=== PATIENT | female | born 1945 | race Caucasian/White ===

== ENCOUNTER 2018-06-13 08:05 | Day surgery (SDC) ==
[2018-06-13] MEDS: TETRACAINE 0.5% UNIT-DOSE OP PRN ×3 (09:15→10:12)
[2018-06-13] MEDS: BETADINE OPTH PREP OP PRN ×2 (09:15→09:57)
[2018-06-13] MEDS: CYCLOGYL 2% OPTH OP PRN ×3 (09:16→09:26)
[2018-06-13] MEDS ORDERED: ZOFRAN 4 MG/2 ML IVP ONE (09:24)
[2018-06-13] MEDS ORDERED: LIDOCAINE 1% 20 ML MDV ID STA (09:24)
[2018-06-13] MEDS ORDERED: BRIMONIDINE TARTRATE 0.2% OPTH SOL OP PRN (09:24)
[2018-06-13 09:27] VITALS: TEMP 98
[2018-06-13] MEDS: LIDOCAINE 1%/PHENYLEPHRINE 1.5% BSS (SURGERY) INTRAOCULA ONE ×2 (09:57→10:12)
[2018-06-13] MEDS: DEX-MOXI-KETOR OPTH INJ 1/0.5/0.4 MG/ML IO ONE ×2 (09:57→10:12)
[2018-06-13] MEDS: BSS WITH EPINEPHRINE OP ONE ×2 (09:57→10:12)
[2018-06-13] MEDS ORDERED: SUBLIMAZE ONE (10:03)
[2018-06-13] MEDS ORDERED: VERSED ONE (10:03)
[2018-06-14 11:40] VITALS: BP 132/73
== END 2018-06-13 11:00 | disposition home or self-care (01) ==
LOC: SURG 08:05
PROVIDERS: ATTEND Ophthalmology
DX: H25.12 Age-related nuclear cataract, left eye (principal)

== ENCOUNTER 2018-06-27 07:33 | Day surgery (SDC) ==
[2018-06-27] MEDS: BETADINE OPTH PREP OP PRN ×2 (08:00→08:48)
[2018-06-27] MEDS: TETRACAINE 0.5% UNIT-DOSE OP PRN ×2 (08:00→08:48)
[2018-06-27] MEDS: CYCLOGYL 2% OPTH OP PRN ×3 (08:01→08:11)
[2018-06-27] MEDS ORDERED: LIDOCAINE 1%/PHENYLEPHRINE 1.5% BSS (SURGERY) INTRAOCULA ONE (08:09)
[2018-06-27] MEDS ORDERED: DEX-MOXI-KETOR OPTH INJ 1/0.5/0.4 MG/ML IO ONE (08:09)
[2018-06-27] MEDS ORDERED: BRIMONIDINE TARTRATE 0.2% OPTH SOL OP PRN (08:09)
[2018-06-27] MEDS ORDERED: BSS WITH EPINEPHRINE OP ONE (08:09)
[2018-06-27] MEDS ORDERED: LIDOCAINE 1% 20 ML MDV ID STA (08:09)
[2018-06-27] MEDS ORDERED: ZOFRAN 4 MG/2 ML IVP ONE (08:09)
[2018-06-27] MEDS ORDERED: VERSED ONE (08:55)
[2018-06-27] MEDS ORDERED: SUBLIMAZE ONE (08:55)
[2018-06-27 16:33] VITALS: BP 128/67
== END 2018-06-27 09:45 | disposition home or self-care (01) ==
LOC: SURG 07:33
PROVIDERS: ATTEND Ophthalmology
DX: H26.8 Other specified cataract (principal)